=== PATIENT | female | born 1970 | race Caucasian/White ===

== ENCOUNTER 2021-03-23 12:26 | Outpatient (CLI) | payer BC, SELFPAY ==
--- NOTE | 2021-03-23 12:46 | MM_ITS ---
WS: [id number] BILATERAL SCREENING DIGITAL MAMMOGRAM WITH CAD HISTORY: SCREENING COMPARISON: 10/02/2018 and 05/16/2017 Bilateral CC and MLO views submitted. Computer aided detection analyzed. Breast composition: There are scattered areas of fibroglandular density. No suspicious masses, microc alcifications or architectural distortion. Subareolar ovoid nodule in the LEFT breast has decreased i n size now measuring 9 mm. No suspicious masses or calcifications. MM/[place] [id number] IMPRESSION: BI-RADS: 2-Benign FOLLOW UP: 1 Year Follow-up
== END 2021-03-23 12:27 | disposition home or self-care (01) ==
LOC: RADSHAW 12:33
PROVIDERS: Family Provider Nurse Practitioner Family; PCP Nurse Practitioner Family; Visit Provider Nurse Practitioner Family
DX: Z12.31 Encounter for screening mammogram for malignant neoplasm of breast (principal)
CPT/HCPCS: 77067

== ENCOUNTER 2021-09-26 09:12 | Outpatient (CLI) | payer BC, SELFPAY ==
[2021-09-26 09:17] VITALS: BP 103/68; BP 118/78; PULSE 69; RESP 17; RESP 18; TEMP 36.5; TEMP 36.8; O2SAT 99; BMI 29.2
[2021-09-26 10:15] VITALS: BP 116/75; PULSE 71; RESP 18; TEMP 36.6; O2SAT 99
[2021-09-26 11:23] VITALS: BP 103/68; PULSE 69; RESP 17; TEMP 36.8; O2SAT 99
== END 2021-09-26 09:13 | disposition home or self-care (01) ==
LOC: OPS 09:14
PROVIDERS: PCP Nurse Practitioner Family; Visit Provider Nurse Practitioner Family
DX: U07.1 COVID-19 (principal)
CPT/HCPCS: 96365

== ENCOUNTER 2022-06-28 14:08 | Outpatient (CLI) | payer BC, SELFPAY ==
--- NOTE | 2022-06-28 14:14 | MM_ITS ---
WS: [id number] BILATERAL 3D TOMOSYNTHESIS DIGITAL SCREENING MAMMOGRAPHY WITH CAD CLINICAL INFORMATION: SCREENING HISTORY: Screening mammogram. No current complaints. COMPARISON: March 23, 2021 TECHNIQUE: Bilateral CC and MLO views. FINDINGS: Scattered fibroglandular densities bilaterally. No suspicious focal mass, asymmetry, calcifications, or architectural distortion. No evidence of malignancy. A few incidental punctate calcifications. Vas cular calcification. MM/[place] [id number] IMPRESSION: BI-RADS: 2-Benign FOLLOW UP: 1 Year Follow-up Recommend return to annual screening mammography.
== END 2022-06-28 14:09 | disposition home or self-care (01) ==
LOC: RAD 14:08
PROVIDERS: PCP Nurse Practitioner Family; Visit Provider Nurse Practitioner Family
DX: Z12.31 Encounter for screening mammogram for malignant neoplasm of breast (principal)
CPT/HCPCS: 77063; 77067